=== PATIENT | male | born 1975 | race African-American/Black ===

== ENCOUNTER 2016-12-01 10:14 | Emergency (ER) | payer OTHER ==
[2016-12-01 10:21] VITALS: BP 149/92
[2016-12-01] MEDS ORDERED: PREDNISONE 20 MG TABLET PO ONE (10:51)
--- NOTE | 2016-12-01 10:57 | ER Document Report ---
ED Skin Rash/Insect Bite/Abscs - General Chief Complaint: Skin Problem Stated Complaint: POSSIBLE SKIN IRRITATION Time Seen by Provider: 12/01/16 10:41 Mode of Arrival: Ambulatory Information source: Patient Notes: 41-year-old male presents to ED for eczema flare to her arms legs chest back buttocks and abdomen and neck. Patient states the itching is a severe he has been trying to use Benadryl but it has not really helped. His last flare was over 15 years ago. He denies any use of new detergents soaps or skin care products states he has not done anything that he does not usually do. 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 TRAVEL OUTSIDE OF THE [place] IN LAST 30 DAYS: No - HPI Patient complains to provider of: Skin rash/lesion Onset: Other - Several days getting worse Onset/Duration: Gradual Severity: Mild Pain Level: 1 Skin Character: Erythema, Rash Quality of rash: Itchy Identify cause: Yes - eczema Exacerbated by: Other - heat Relieved by: Denies Similar symptoms previously: Yes Recently seen / treated by doctor: No - Related Data Allergies/Adverse Reactions: ibuprofen [Ibuprofen] Allergy (Severe, Verified 12/01/16 10:21) Hives strawberry [[place]] Allergy (Severe, Verified 12/01/16 10:21) Past Medical History - General Information source: Patient - Social History Smoking Status: Current Every Day Smoker Cigarette use (# per day): Yes - 4-6 cig and 2 B&M Chew tobacco use (# tins/day): No Smoking Education Provided: Yes - less than 1 min Frequency of alcohol use: None Drug Abuse: None Occupation: moving and storage Lives with: Family Family History: Arthritis, CAD, CVA, DM, Hyperlipidemia, Hypertension - Past Medical History Cardiac Medical History: Reports: None Pulmonary Medical History: Reports: Hx Asthma EENT Medical History: Reports: None Neurological Medical History: Reports: Hx Migraine Endocrine Medical History: Reports: None Renal/ Medical History: Reports: None Malignancy Medical History: Reports None GI Medical History: Reports: None Musculoskeltal Medical History: Reports None Skin Medical History: Reports Hx Eczema Psychiatric Medical History: Reports: None Traumatic Medical History: Reports: None Infectious Medical History: Reports: None Surgical Hx: Negative - Immunizations Hx Diphtheria, Pertussis, Tetanus Vaccination: Yes Review of Systems - Review of Systems Constitutional: No symptoms reported EENT: No symptoms reported Cardiovascular: No symptoms reported Respiratory: No symptoms reported Gastrointestinal: No symptoms reported Genitourinary: No symptoms reported Male Genitourinary: No symptoms reported Musculoskeletal: No symptoms reported Skin: Rash - eczema arms chest back abdomen Hematologic/Lymphatic: No symptoms reported Neurological/Psychological: No symptoms reported -: Yes All other systems reviewed and negative Physical Exam - Vital signs Vitals: Temp Pulse Resp BP Pulse Ox 98.7 F 105 H 20 149/92 H 97 12/01/16 10:12/01/16 10:12/01/16 10:12/01/16 10:12/01/16 10:16 Course - Vital Signs Vital signs: Temp Pulse Resp BP Pulse Ox 98.7 F 105 H 20 149/92 H 12/01/16 10:12/01/16 10:12/01/16 10:12/01/16 10:12/01/16 10:16 Discharge - Discharge Clinical Impression: Eczema Qualifiers: Eczema type: unspecified Qualified Code(s): L30.9 - Dermatitis, unspecified Condition: Stable Disposition: HOME, SELF-CARE Instructions: Family Physicians / Practices Additional Instructions: Atopic Dematitis (Eczema) You have atopic dermatitis, commonly called eczema. This is a chronic allergic skin condition. It often occurs in families with asthma and hay fever. The skin develops patches of redness, itching and scaling. Eczema often affects the back of the neck, back of the legs, and front of the arms. In children it affects the back of the knees, front of the elbows, and the cheeks. Itching is the main symptom. Eczema can be triggered by dryness, heat, sweating, and detergents or soap. Scratching makes the rash worse. Food or skin allergy can cause eczema. Emotional stress may also be a factor. Symptoms may get better or worse spontaneously. Generally, the treatment consists of: (1) avoid hot-water baths, (2) avoid using soap on your skin, (3) apply a cortisone cream as needed, and (4) use antihistamines for itching. For severe episodes, oral cortisone medication may be required. Call the doctor if you get worse despite treatment, or if signs of infection occur -- such as spreading redness, red streaks, swollen glands, swelling, or fever. STEROID MEDICATION: You have been given a medicine of the cortisone/steroid class. This medication is used to control inflammation or allergy. It is usually only given for a short period of time, until the acute process subsides. There are usually no side effects from short-term use of cortisone-like medications. Some persons feel an increased sense of well-being and are not sleepy at bedtime. Long-term use of cortisone medications is best avoided, unless required for a severe condition. If your condition does not remit, or relapses after the course of corticosteroid medication, you should consult your physician. ACID-SUPPRESSING MEDICATION: You have a prescription for medicine which reduces the stomach's secretion of acid. Examples include Zantac, Tagament, and Pepcid. These drugs are often used to allow healing of ulcers or esophagitis. They may be needed to prevent recurrence of ulcers in some patients, or to prevent damage from acid reflux in the esophagus. Take all medication as prescribed, even after the pain is gone. Regular antacids may be added as needed if you have symptoms while taking this medicine. These medications sometimes are prescribed for allergic reactions because they have anti-histaminic effects and relieve the rash and itching of the reaction. There are usually no side effects from this medication. But, in rare cases and particularly in the elderly, serious problems can occur. Contact your doctor if there is fever, rash, hallucinations, confusion, or unusual bruising. Contact your doctor at once if you develop lightheadedness, black or bloody stool, or bloody vomitus. ANTIHISTAMINES: An antihistamine has been given and/or prescribed to control your symptoms. Antihistamines are used for many reasons, including itching, watering eyes, runny nose, allergic swelling, hives, and insect stings. Antihistamines may cause drowsiness, especially with the first dose. Do not operate machinery or drive while under the effects of the medication. Other common side effects include dry mouth and eyes. In older persons, antihistamines can occasionally cause urinary retention, constipation, and trouble focusing the eyes. Do not combine the medication with alcohol, or with any other medication without talking to your doctor. FOLLOW-UP CARE: If you have been referred to a physician for follow-up care, call the physician s office for an appointment as you were instructed or within the next two days. If you experience worsening or a significant change in your symptoms, notify the physician immediately or return to the Emergency Department at any time for re-evaluation. Prescriptions: Hydroxyzine HCl 50 mg PO BIDP PRN #14 tablet PRN Reason: Prednisone [Sterapred Ds] 1 pkg PO ASDIR PRN 12 Days tab.ds.pk PRN Reason: Forms: Elevated Blood Pressure, Smoking Cessation Education, Return to Work
== END 2016-12-01 11:07 | disposition home or self-care (01) ==
LOC: ER 10:14
DX: L30.9 Dermatitis, unspecified (principal); J45.909 Unspecified asthma, uncomplicated; F17.210 Nicotine dependence, cigarettes, uncomplicated; Z71.6 Tobacco abuse counseling; Z88.6 Allergy status to analgesic agent; Z91.018 Allergy to other foods
CPT/HCPCS: 99282; J7512

== ENCOUNTER 2017-05-08 09:54 | Emergency (ER) | payer SELFPAY ==
[2017-05-08] MEDS ORDERED: METHYLPREDNISOLONE INJ 125 MG/2 ML SDV IM ONE (10:18)
[2017-05-08 10:23] VITALS: BP 124/77
--- NOTE | 2017-05-08 10:24 | ER Document Report ---
HPI - HPI Pain Level: Denies Notes: Patient is a 41-year-old male who presents ED complaining of an eczema flareup over the last couple weeks. Patient states that he has intermittent flareups and needs steroids to help with the rash. Patient states that his rash is pruritic. Patient states that the rash feels really shows up on his trunk and extremities. Patient denies any changes in soaps, detergents, travel, insect bites, new foods, or new medicines. Patient is still eating and drinking without any difficulties. He is urinating normally and having normal bowel movements. Patient states that he has felt intermittent chills over the last 24 hours, but otherwise has no other concerns or complaints at this time. Denies any headache, fever, neck pain, URI, sore throat, chest pain, palpitations, syncope, cough, shortness of breath, wheeze, dyspnea, abdominal pain, nausea/vomiting/diarrhea, urinary retention, dysuria, hematuria, loss of control of bowel or bladder, numbness/tingling, joint pains, muscle paralysis/ weakness. Denies any changes in weight. - ROS Notes: REVIEW OF SYSTEMS: CONSTITUTIONAL : see hpi. Denies fever, or sweats. Denies recent illness. EENT: Denies eye, ear, throat, or mouth pain or symptoms. Denies nasal or sinus congestion or discharge. Denies throat, tongue, or mouth swelling or difficulty swallowing. CARDIOVASCULAR: Denies chest pain. Denies palpitations or racing or irregular heart beat. Denies ankle edema. RESPIRATORY: Denies cough, cold, or chest congestion. Denies shortness of breath, difficulty breathing, or wheezing. GASTROINTESTINAL: Denies abdominal pain or distention. Denies nausea, vomiting , or diarrhea. Denies blood in vomitus, stools, or per rectum. Denies black, tarry stools. Denies constipation. GENITOURINARY: Denies difficulty urinating, painful urination, burning, frequency, blood in urine, or discharge. MUSCULOSKELETAL: Denies back or neck pain or stiffness. Denies joint pain or swelling. SKIN: see hpi NEUROLOGICAL: Denies confusion or altered mental status. Denies passing out or loss of consciousness. Denies dizziness or lightheadedness. Denies headache. Denies problems with gait or speech. Denies sensory loss, numbness , or tingling. Denies seizures. ALL OTHER SYSTEMS REVIEWED AND NEGATIVE. Dictation was performed using [email or web address] voice recognition software Past Medical History - Social History Smoking Status: Unknown if Ever Smoked Family History: Arthritis, CAD, CVA, DM, Hyperlipidemia, Hypertension Pulmonary Medical History: Reports: Hx Asthma Neurological Medical History: Reports: Hx Migraine Renal/ Medical History: Denies: Hx Peritoneal Dialysis Skin Medical History: Reports Hx Eczema - Immunizations Hx Diphtheria, Pertussis, Tetanus Vaccination: Yes Vertical Provider Document - CONSTITUTIONAL Agree With Documented VS: Yes Notes: PHYSICAL EXAMINATION: GENERAL: Well-appearing, well-nourished and in no acute distress. A&Ox4. HEAD: Atraumatic, normocephalic. EYES: Pupils equal round and reactive to light, extraocular movements intact, sclera anicteric, conjunctiva are normal. ENT: Nares patent and without discharge. oropharynx clear without exudates. No tonsilar hypertrophy or erythema. Moist mucous membranes. No sinus tenderness. NECK: Normal range of motion, supple without lymphadenopathy LUNGS: Breath sounds clear to auscultation bilaterally and equal. No wheezes rales or rhonchi. HEART: Regular rate and rhythm without murmurs, rubs, gallops. ABDOMEN: Soft, nontender, nondistended abdomen. No guarding, no rebound. No masses appreciated. Normal bowel sounds present. No CVA tenderness bilaterally. Musculoskeletal: FROM to passive/active. Strength 5+/5. Extremities: No cyanosis, clubbing, or edema b/l. Peripheral pulses 2+. Capillary refill less than 3 seconds. NEUROLOGICAL: Cranial nerves grossly intact. Normal speech, normal gait. Normal sensory, motor exams PSYCH: Normal mood, normal affect. SKIN: eczema to extremities b/l and trunk b/l, primarily to flexor surfaces. - INFECTION CONTROL TRAVEL OUTSIDE OF THE [place] IN LAST 30 DAYS: No Course - Re-evaluation Re-evalutation: 05/08/17 10:21 Patient is an afebrile, well-hydrated, 41-year-old male who presents the ED with an eczema flareup. Vitals are stable. PE is otherwise unremarkable. Solu -Medrol given IM today. I will send him home with a prescription for a steroid tapering dose as well as triamcinolone. Low suspicion for any acute systemic emergent condition at this time. Patient is aware that his condition can change from initial presentation and he needs to monitor symptoms closely and seek medical attention with any acute changes. Recheck with your PCM in 3-5 days. Consider consult with a produce service team member. Return to the ED with any worsening/concerning symptoms otherwise as reviewed in discharge. Patient is in agreement. Discharge - Discharge Clinical Impression: Eczema Qualifiers: Eczema type: flexural Qualified Code(s): L20.82 - Flexural eczema Condition: Stable Disposition: HOME, SELF-CARE Instructions: Atopic Dermatitis (Eczema) ([facility]), Steroid Medication, Steroid Medication Injection Additional Instructions: Keep the skin clean Wash with soap and water Tylenol/ibuprofen if needed Triple antibiotic ointment for any break in the skin Moisturizers Take medication as directed Monitor for any worsening symptoms Recheck with your PCM in 3-5 days Consider consult with a produce service team member for ongoing/worsening symptoms Return to the ED with any worsening symptoms and/or development of fever, headache, chest pain, palpitations, syncope, shortness of breath, trouble breathing, abdominal pain, n/v/d, abscess, purulent discharge, red streaks, worsening swelling, or other worsening symptoms that are concerning to you. Prescriptions: Prednisone [Deltasone 10 mg Tablet] 10 mg PO ASDIR PRN #21 tablet PRN Reason: Triamcinolone Acetonide [Aristocort 0.5% Cream 15 gm] 1 applic TP BID #1 tube Referrals: TIFFANIE MCCOY DO [ACTIVE STAFF] - Follow up as needed
== END 2017-05-08 10:35 | disposition home or self-care (01) ==
LOC: ER 09:54
DX: L20.82 Flexural eczema (principal); R68.83 Chills (without fever); J45.909 Unspecified asthma, uncomplicated
CPT/HCPCS: 99283; 96372; J2930

== ENCOUNTER 2018-02-24 18:12 | Emergency (ER) | payer SELFPAY ==
[2018-02-24] MEDS ORDERED: IPRATROPIUM/ALBUTEROL 0.5-2.5 MG/3 ML AMPUL NEB ONE ×2 (18:15→18:20)
[2018-02-24] MEDS ORDERED: PREDNISONE 20 MG TABLET PO ONE (18:20)
[2018-02-24] MEDS ORDERED: ALBUTEROL SULFATE 0.083% NEB 2.5 MG/3 ML AMPUL NEB ONE (18:27)
--- NOTE | 2018-02-24 18:29 | ER Document Report ---
ED Medical Screen (RME) - General Chief Complaint: Breathing Difficulty Stated Complaint: DIFFICULTY BREATHING Time Seen by Provider: 02/24/18 18:20 Notes: 42-year-old male patient with history of asthma which is usually only a problem when he gets URIs. He states his wheezing started yesterday and he was using his inhaler. When he arrived he was quite dyspneic, I saw him after he finished the DuoNeb. He still had some wheezes and air trapping but states his breathing is considerably better than before the DuoNeb. He does have eczema and takes amino modulating drugs and steroid lotions. I have greeted and performed a rapid initial assessment of this patient. A comprehensive ED assessment and evaluation of the patient, analysis of test results and completion of the medical decision making process will be conducted by additional ED providers. TRAVEL OUTSIDE OF THE [place] IN LAST 30 DAYS: No - Related Data Allergies/Adverse Reactions: ibuprofen [Ibuprofen] Allergy (Severe, Verified 05/08/17 09:57) Hives strawberry [[place]] Allergy (Severe, Verified 05/08/17 09:57) morphine Allergy (Verified 02/24/18 18:13) Past Medical History Pulmonary Medical History: Reports: Hx Asthma Neurological Medical History: Reports: Hx Migraine Renal/ Medical History: Denies: Hx Peritoneal Dialysis Skin Medical History: Reports Hx Eczema - Immunizations Hx Diphtheria, Pertussis, Tetanus Vaccination: Yes Physical Exam - Vital signs Vitals: Temp Pulse Resp BP Pulse Ox 98.8 F 102 H 38 H 167/87 H 96 02/24/18 18:16 02/24/18 18:16 02/24/18 18:16 02/24/18 18:16 02/24/18 18:16 Course - Vital Signs Vital signs: Temp Pulse Resp BP Pulse Ox 98.8 F 102 H 38 H 167/87 H 96 02/24/18 18:16 02/24/18 18:16 02/24/18 18:16 02/24/18 18:16 02/24/18 18:16
--- NOTE | 2018-02-24 18:41 | ER Document Report ---
ED General - General Chief Complaint: Breathing Difficulty Stated Complaint: DIFFICULTY BREATHING Time Seen by Provider: 02/24/18 18:20 Notes: Patient is a 42-year-old male with asthma that presents to the emergency department for chief complaint of shortness of breath and wheezing. Patient states that he started having coughing and wheezing on Monday, he is out of medication for his asthma so his symptoms progressed over that period of time. He denies having any associated fevers, chills, night sweats, chest pain, nausea , vomiting or abdominal pain. He otherwise has no other complaints. Past Medical History: Asthma Past Surgical History: Denies surgical history Social History: Admits to using a vapor, former smoker, denies alcohol or drug use. Family History: Reviewed and noncontributory for presenting illness Allergies: Reviewed, see documented allergy list. REVIEW OF SYSTEMS: Other than noted above, the 12 point review of systems was reviewed with the patient and were negative, all pertinent findings are included in the HPI. PHYSICAL EXAMINATION: Vital signs reviewed, nursing noted reviewed. GENERAL: Well-appearing, well-nourished and in no acute distress. HEAD: Atraumatic, normocephalic. EYES: Eyes appear normal, extraocular movements intact, sclera anicteric, conjunctiva are normal. ENT: nares patent, oropharynx clear without exudates. Moist mucous membranes. NECK: Normal range of motion, supple without lymphadenopathy LUNGS: Bilateral expiratory wheezing noted on lung exam, no acute respiratory distress HEART: Heart rate mildly tachycardic, regular rhythm, no audible murmur ABDOMEN: Soft, nontender, normoactive bowel sounds. No rebound, guarding, or rigidity. No masses appreciated. EXTREMITIES: Nontender, good range of motion, no pitting or edema. NEUROLOGICAL: No focal neurological deficits. Moves all extremities spontaneously Motor and sensory grossly intact on exam. PSYCH: Normal mood, normal affect. SKIN: Warm, Dry, normal turgor, no rashes or lesions noted on exposed skin TRAVEL OUTSIDE OF THE [place] IN LAST 30 DAYS: No - Related Data Allergies/Adverse Reactions: ibuprofen [Ibuprofen] Allergy (Severe, Verified 05/08/17 09:57) Hives strawberry [[place]] Allergy (Severe, Verified 05/08/17 09:57) morphine Allergy (Verified 02/24/18 18:13) Past Medical History - Social History Smoking Status: Unknown if Ever Smoked Frequency of alcohol use: None Drug Abuse: None Family History: Arthritis, CAD, CVA, DM, Hyperlipidemia, Hypertension Patient has suicidal ideation: No Patient has homicidal ideation: No Pulmonary Medical History: Reports: Hx Asthma Neurological Medical History: Reports: Hx Migraine Renal/ Medical History: Denies: Hx Peritoneal Dialysis Skin Medical History: Reports Hx Eczema - Immunizations Hx Diphtheria, Pertussis, Tetanus Vaccination: Yes Physical Exam - Vital signs Vitals: Temp Pulse Resp BP Pulse Ox 98.8 F 102 H 38 H 167/87 H 96 02/24/18 18:16 02/24/18 18:16 02/24/18 18:16 02/24/18 18:16 02/24/18 18:16 Course - Re-evaluation Re-evalutation: Patient seen and examined vital signs reviewed. Patient was evaluated and treated as appropriate for the patient's presenting symptoms and complaint, with consideration of any critical or life threatening conditions that may be associated with their obtained history and exam as noted above. Patient was treated with DuoNeb breathing treatments, and prednisone 60 mg p.o. The patient was re-evaluated and was feeling much better, and much improved, stating that his breathing was back to his baseline Evaluation was most consistent with acute exacerbation of asthma Plan of care was discussed with the patient at this point, after careful consideration I feel that that patient can be discharged from the emergency department, the patient was educated treatments and reasons to return to the emergency department based on their presumed diagnosis as noted above, they were advised to followup with a primary care physician in 2-3 days. Patient was agreeable to plan of care. *Note is created using voice recognition software and may contain spelling, syntax or grammatical errors. - Vital Signs Vital signs: Temp Pulse Resp BP Pulse Ox 98.8 F 102 H 38 H 167/87 H 96 02/24/18 18:16 02/24/18 18:16 02/24/18 18:16 02/24/18 18:16 02/24/18 18:16 Discharge - Discharge Clinical Impression: Acute asthma exacerbation Qualifiers: Asthma severity: unspecified severity Asthma persistence: unspecified Qualified Code(s): J45.901 - Unspecified asthma with (acute) exacerbation Condition: Stable Disposition: HOME, SELF-CARE Instructions: Asthma ([facility]) Additional Instructions: Please return to the emergency department if you have any worsening, or concern of your symptoms. Please return to the emergency department if you develop chest pain, difficulty breathing, severe abdominal pain, or ongoing vomiting. Please follow-up with your primary care physician in 2-3 days and any other recommended physicians. If prescribed, take all medications as directed. If you have any questions or concerns do not hesitate to return the emergency department for evaluation. Prescriptions: Prednisone [Deltasone 20 mg Tablet] 3 tab PO DAILY 4 Days #12 tablet Referrals: CLARENCE HAYNES MD [COMMUNITY BASED STAFF] - Follow up in 3-5 days (or your primary care. )
[2018-02-24] MEDS ORDERED: ALBUTEROL SULFATE HFA (90 MCG/PUFF) 8 GM MDI (1 MDI/ER DISP) IH ONE (19:10)
[2018-02-24 19:19] VITALS: BP 154/84
== END 2018-02-24 19:24 | disposition home or self-care (01) ==
LOC: ER 18:12
DX: J45.901 Unspecified asthma with (acute) exacerbation (principal); Z88.6 Allergy status to analgesic agent
CPT/HCPCS: 94640 ×2; 99284; J7512; J3490; J7620

== ENCOUNTER 2018-07-10 17:39 | Emergency (ER) | payer SELFPAY ==
[2018-07-10] MEDS ORDERED: IPRATROPIUM/ALBUTEROL 0.5-2.5 MG/3 ML AMPUL NEB ONE (18:03)
[2018-07-10] MEDS ORDERED: PREDNISONE 20 MG TABLET PO ONE (18:03)
--- NOTE | 2018-07-10 18:03 | ER Document Report ---
ED General - General Chief Complaint: Breathing Difficulty Stated Complaint: DIFFICULTY BREATHING Time Seen by Provider: 07/10/18 17:56 Primary Care Provider: MORAIMA CROCKETT MD [COMMUNITY BASED STAFF] - Follow up in 3-5 days (primary care. ) Notes: Patient is a 42-year-old male with asthma that presents to the emergency department for chief complaint of wheezing and shortness of breath. Patient reports she is been having a cough, and has felt more short of breath over the past few days, seemingly worse yesterday, he did have an albuterol inhaler which she has run out of. He does not have any medication for his asthma at home currently. Denies having any associated chest pain, nausea, vomiting, fevers, chills, night sweats. Past Medical History: Asthma, eczema Past Surgical History: Denies surgical history Social History: Denies tobacco, alcohol or drug use. Family History: Reviewed and noncontributory for presenting illness Allergies: Reviewed, see documented allergy list. REVIEW OF SYSTEMS: Other than noted above, the 12 point review of systems was reviewed with the patient and were negative, all pertinent findings are included in the HPI. PHYSICAL EXAMINATION: Vital signs reviewed, nursing noted reviewed. GENERAL: Well-appearing, well-nourished and in no acute distress. HEAD: Atraumatic, normocephalic. EYES: Eyes appear normal, extraocular movements intact, sclera anicteric, conjunctiva are normal. ENT: nares patent, oropharynx clear without exudates. Moist mucous membranes. NECK: Normal range of motion, supple without lymphadenopathy LUNGS: Bilateral inspiratory and expiratory wheezing noted throughout all lung greer, no respiratory distress however. HEART: Regular rate and rhythm without murmurs ABDOMEN: Soft, nontender, normoactive bowel sounds. No rebound, guarding, or rigidity. No masses appreciated. EXTREMITIES: Nontender, good range of motion, no pitting or edema. NEUROLOGICAL: No focal neurological deficits. Moves all extremities spontaneously Motor and sensory grossly intact on exam. PSYCH: Normal mood, normal affect. SKIN: Warm, Dry, normal turgor, no rashes or lesions noted on exposed skin TRAVEL OUTSIDE OF THE [place] IN LAST 30 DAYS: No - Related Data Allergies/Adverse Reactions: ibuprofen [Ibuprofen] Allergy (Severe, Verified 07/10/18 17:45) Hives strawberry [[place]] Allergy (Severe, Verified 07/10/18 17:45) morphine Allergy (Verified 07/10/18 17:45) Past Medical History - Social History Smoking Status: Never Smoker Family History: Arthritis, CAD, CVA, DM, Hyperlipidemia, Hypertension Patient has suicidal ideation: No Patient has homicidal ideation: No Pulmonary Medical History: Reports: Hx Asthma Neurological Medical History: Reports: Hx Migraine Renal/ Medical History: Denies: Hx Peritoneal Dialysis Skin Medical History: Reports Hx Eczema - Immunizations Hx Diphtheria, Pertussis, Tetanus Vaccination: Yes Physical Exam - Vital signs Vitals: Temp Pulse Resp BP Pulse Ox 98.8 F 84 24 H 153/95 H 94 07/10/18 17:55 07/10/18 17:55 07/10/18 17:55 07/10/18 17:55 07/10/18 17:55 Course - Re-evaluation Re-evalutation: Patient seen and examined vital signs reviewed. Patient was evaluated and treated as appropriate for the patient's presenting symptoms and complaint, with consideration of any critical or life threatening conditions that may be associated with their obtained history and exam as noted above. Patient was treated with DuoNeb breathing treatments, and given a p.o. dose of prednisone, chest x-ray obtained and negative for evidence of pneumonia. The patient was re-evaluated and was much improved, wheezing resolved after DuoNeb Evaluation was most consistent with acute asthma exacerbation, patient given a prescription for prednisone, he is also given a prescription for budesonide inhaled, he does have a nebulizer, and additionally patient was given an albuterol inhaler with spacer from the ED. Plan of care was discussed with the patient at this point, after careful consideration I feel that that patient can be discharged from the emergency department, the patient was educated treatments and reasons to return to the emergency department based on their presumed diagnosis as noted above, they were advised to followup with a primary care physician in 2-3 days. Patient was agreeable to plan of care. *Note is created using voice recognition software and may contain spelling, syntax or grammatical errors. Chest X-Ray 07/10/18 18:04 IMPRESSION: NO ACUTE RADIOGRAPHIC FINDING IN THE CHEST. - Vital Signs Vital signs: Temp Pulse Resp BP Pulse Ox 98.8 F 81 20 160/90 H 93 07/10/18 17:55 07/10/18 19:15 07/10/18 19:15 07/10/18 19:15 07/10/18 19:15 Discharge - Discharge Clinical Impression: Acute asthma exacerbation Qualifiers: Asthma severity: unspecified severity Asthma persistence: unspecified Qualified Code(s): J45.901 - Unspecified asthma with (acute) exacerbation Condition: Stable Disposition: HOME, SELF-CARE Instructions: Asthma ([facility]) Additional Instructions: Please use the inhaler that is been dispensed to you from the emergency department every 4 hours for the next 3-5 days, and please complete the entire course of steroids had been prescribed to you, to help with the inflammation that is in your lungs. Prescriptions: Budesonide [Pulmicort Neb 0.5 mg/2 ml Ampul] 0.5 mg NEB Q12 #60 ampul.neb RX: Prednisone [Deltasone 10 mg Tablet] 40 mg PO DAILY #16 tablet Referrals: MORAIMA CROCKETT MD [COMMUNITY BASED STAFF] - Follow up in 3-5 days (primary care. )
[2018-07-10] MEDS ORDERED: ALBUTEROL SULFATE HFA (90 MCG/PUFF) 8 GM MDI (1 MDI/ER DISP) IH ONE (18:04)
--- NOTE | 2018-07-10 18:22 | RADIOLOGY REPORT (SQ) ---
EXAM DESCRIPTION: CHEST 2 VIEWS COMPLETED DATE/TIME: 07/10/2018 6:17 pm REASON FOR STUDY: cough COMPARISON: 09/30/2009 EXAM PARAMETERS: NUMBER OF VIEWS: two views TECHNIQUE: Digital Frontal and Lateral radiographic views of the chest acquired. RADIATION DOSE: NA LIMITATIONS: none FINDINGS: LUNGS AND PLEURA: No opacities, masses or pneumothorax. No pleural effusion. MEDIASTINUM AND HILAR STRUCTURES: No masses or contour abnormalities. HEART AND VASCULAR STRUCTURES: Heart normal size. No evidence for failure. BONES: No acute findings. HARDWARE: None in the chest. OTHER: No other significant finding. IMPRESSION: NO ACUTE RADIOGRAPHIC FINDING IN THE CHEST. TECHNICAL DOCUMENTATION: JOB ID: [id number] [employer]- All Rights Reserved Reading location - IP/workstation name: [email or web address]
[2018-07-10 19:23] VITALS: BP 160/90
== END 2018-07-10 19:17 | disposition home or self-care (01) ==
LOC: ER 17:39
DX: J45.901 Unspecified asthma with (acute) exacerbation (principal); R06.02 Shortness of breath; R06.00 Dyspnea, unspecified; Z88.6 Allergy status to analgesic agent
CPT/HCPCS: 94640; 99284; 71046; J7512; J3490; J7620

== ENCOUNTER 2019-01-01 11:54 | Emergency (ER) | payer SELFPAY ==
[2019-01-01] MEDS ORDERED: ASPIRIN 81 MG TABLET, CHEWABLE PO ONE (12:09)
--- NOTE | 2019-01-01 12:11 | ER Document Report ---
ED Medical Screen (RME) - General Chief Complaint: Chest Pain Stated Complaint: CHEST PAIN Time Seen by Provider: 01/01/19 12:06 Mode of Arrival: Ambulatory Information source: Patient Notes: Patient presents to the emergency department with complaints of chest pain to the center of his chest. Reports it started with a poke now it feels like a pressure pain. Denies other symptoms such as shortness of breath fever vomiting diarrhea nausea. Patient denies history of cardiac disease. Reports he drinks about 2-1/2 cup of coffee a day. 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 Reports he only takes medication for his eczema. Patient very emotional. I have greeted and performed a rapid initial assessment of this patient. A comprehensive ED assessment and evaluation of the patient, analysis of test results and completion of the medical decision making process will be conducted by additional ED providers. Dictation of this chart was performed using voice recognition software; therefore, there may be some unintended grammatical errors. TRAVEL OUTSIDE OF THE [place] IN LAST 30 DAYS: No - Related Data Allergies/Adverse Reactions: ibuprofen [Ibuprofen] Allergy (Severe, Verified 01/01/19 11:55) Hives strawberry [[place]] Allergy (Severe, Verified 01/01/19 11:55) morphine Allergy (Verified 01/01/19 11:55) Past Medical History Pulmonary Medical History: Reports: Hx Asthma Neurological Medical History: Reports: Hx Migraine Renal/ Medical History: Denies: Hx Peritoneal Dialysis Skin Medical History: Reports Hx Eczema - Immunizations Hx Diphtheria, Pertussis, Tetanus Vaccination: Yes Physical Exam - Vital signs Vitals: Temp Pulse Resp BP Pulse Ox 98.1 F 75 18 144/93 H 96 01/01/19 11:57 01/01/19 11:57 01/01/19 11:57 01/01/19 11:57 01/01/19 11:57 Course - Vital Signs Vital signs: Temp Pulse Resp BP Pulse Ox 98.1 F 75 18 144/93 H 96 01/01/19 11:57 01/01/19 11:57 01/01/19 11:57 01/01/19 11:57 01/01/19 11:57
[2019-01-01 12:42] LABS: ABSOLUTE BASOPHILS # (AUTO) 0.1 10^3/uL (0.0-0.2); ABSOLUTE EOSINOPHILS # (AUTO) 1.2 10^3/uL (0.0-0.6); ABSOLUTE LYMPHOCYTES (AUTO) 2.7 10^3/uL (0.5-4.7); ABSOLUTE MONOCYTES (AUTO) 0.5 10^3/uL (0.1-1.4); ABSOLUTE NEUT (AUTO) 1.8 10^3/uL (1.7-8.2); BASOPHILS % (AUTO) 1.3 % (0-2); EOSINOPHILS % (AUTO) 18.8 % (0-6); HEMATOCRIT 38.9 % (37.9-51.0); LYMPHOCYTES % (AUTO) 44.2 % (13-45); MEAN CORPUSCULAR HEMOGLOBIN 32.1 pg (27.0-33.4); MEAN CORPUSCULAR HGB CONC 33.5 g/dL (32.0-36.0); MEAN CORPUSCULAR VOLUME 96 fl (80-97); MONOCYTES % (AUTO) 7.4 % (3-13); PLATELET COUNT 237 10^3/uL (150-450); RED BLOOD COUNT 4.06 10^6/uL (4.35-5.55); RED CELL DISTRIBUTION WIDTH 12.8 % (11.5-14.0); SEGMENTED NEUTROPHILS % (AUTO) 28.3 % (42-78); TOTAL CELLS COUNTED % (AUTO) 100 %; WHITE BLOOD COUNT 6.2 10^3/uL (4.0-10.5)
--- NOTE | 2019-01-01 12:43 | RADIOLOGY REPORT (SQ) ---
EXAM DESCRIPTION: CHEST 2 VIEWS COMPLETED DATE/TIME: 01/01/2019 12:29 pm REASON FOR STUDY: cp COMPARISON: 07/10/2018 EXAM PARAMETERS: NUMBER OF VIEWS: two views TECHNIQUE: Digital Frontal and Lateral radiographic views of the chest acquired. RADIATION DOSE: NA LIMITATIONS: none FINDINGS: LUNGS AND PLEURA: No opacities, masses or pneumothorax. No pleural effusion. MEDIASTINUM AND HILAR STRUCTURES: No masses or contour abnormalities. HEART AND VASCULAR STRUCTURES: Heart normal size. No evidence for failure. BONES: No acute findings. HARDWARE: None in the chest. OTHER: No other significant finding. IMPRESSION: NO ACUTE RADIOGRAPHIC FINDING IN THE CHEST. TECHNICAL DOCUMENTATION: JOB ID: [id number] [employer]- All Rights Reserved Reading location - IP/workstation name: [email or web address]
[2019-01-01 13:00] LABS: ALBUMIN 4.1 g/dL (3.5-5.0); ALKALINE PHOSPHATASE 54 U/L (38-126); ANION GAP 7 (5-19); ASPARTATE AMINO TRANSFERASE 28 U/L (17-59); BILIRUBIN,DIRECT 0.2 mg/dL (0.0-0.4); BILIRUBIN,TOTAL 0.5 mg/dL (0.2-1.3); BLOOD UREA NITROGEN 7 mg/dL (7-20); CARBON DIOXIDE 29 mmol/L (22-30); CHLORIDE 101 mmol/L (98-107); CREATINE KINASE 137 U/L (55-170); GLUCOSE 82 mg/dL (75-110); POTASSIUM 4.2 mmol/L (3.6-5.0); TOTAL PROTEIN 7.4 g/dL (6.3-8.2)
[2019-01-01 13:10] LABS: CREATINE KINASE MB 0.58 ng/mL (<4.55); TROPONIN I < 0.012 ng/mL
--- NOTE | 2019-01-01 14:31 | EKG REPORT ---
SEVERITY:- ABNORMAL ECG - SINUS RHYTHM FIRST DEGREE AV BLOCK LVH BY VOLTAGE BORDERLINE T ABNORMALITIES, INFERIOR LEADS : Confirmed by: Duke Stone MD 01-Jan-2019 14:30:41
--- NOTE | 2019-01-01 14:54 | ER Document Report ---
ED Cardiac - General Chief Complaint: Chest Pain Stated Complaint: CHEST PAIN Time Seen by Provider: 01/01/19 12:06 Mode of Arrival: Ambulatory Information source: Patient Notes: Patient is a 43-year-old male presents emergency department chief complaint of chest pain that began at approximately 11 AM while he was at work. Patient describes this as a sharp pain to the center of his chest. He denies any history of similar episodes. He states that he was not doing any physical activity when the pain began. He does state that the pain has been intermittent since that time. He denies any associated nausea, shortness of breath or diaphoresis with this pain. TRAVEL OUTSIDE OF THE [place] IN LAST 30 DAYS: No - Related Data Allergies/Adverse Reactions: ibuprofen [Ibuprofen] Allergy (Severe, Verified 01/01/19 11:55) Hives strawberry [[place]] Allergy (Severe, Verified 01/01/19 11:55) morphine Allergy (Verified 01/01/19 11:55) Past Medical History - General Information source: Patient - Social History Smoking Status: Current Every Day Smoker Frequency of alcohol use: None Drug Abuse: None Family History: Arthritis, CAD, CVA, DM, Hyperlipidemia, Hypertension Patient has suicidal ideation: No Patient has homicidal ideation: No Pulmonary Medical History: Reports: Hx Asthma Neurological Medical History: Reports: Hx Migraine Renal/ Medical History: Denies: Hx Peritoneal Dialysis Skin Medical History: Reports Hx Eczema - Immunizations Hx Diphtheria, Pertussis, Tetanus Vaccination: Yes Review of Systems - Review of Systems Constitutional: No symptoms reported EENT: No symptoms reported Cardiovascular: Chest pain Respiratory: No symptoms reported Gastrointestinal: No symptoms reported Genitourinary: No symptoms reported Male Genitourinary: No symptoms reported Musculoskeletal: No symptoms reported Skin: No symptoms reported Hematologic/Lymphatic: No symptoms reported Neurological/Psychological: No symptoms reported Physical Exam - Vital signs Vitals: Temp Pulse Resp BP Pulse Ox 98.1 F 75 18 144/93 H 96 01/01/19 11:57 01/01/19 11:57 01/01/19 11:57 01/01/19 11:57 01/01/19 11:57 - Notes Notes: PHYSICAL EXAMINATION: GENERAL: Well-appearing, well-nourished and in no acute distress. HEAD: Atraumatic, normocephalic. EYES: Pupils equal round and reactive to light, extraocular movements intact, sclera anicteric, conjunctiva are normal. ENT: Nares patent, oropharynx clear without exudates. Moist mucous membranes. NECK: Normal range of motion, supple without lymphadenopathy LUNGS: Breath sounds clear to auscultation bilaterally and equal. No wheezes rales or rhonchi. HEART: Regular rate and rhythm without murmurs ABDOMEN: Soft, nontender, nondistended abdomen. No guarding, no rebound. No masses appreciated. Musculoskeletal: No pain upon palpation of the chest wall. NEUROLOGICAL: Cranial nerves grossly intact. Normal speech, normal gait. Normal sensory, motor exams PSYCH: Normal mood, normal affect. SKIN: Warm, Dry, normal turgor, no rashes or lesions noted. Course - Re-evaluation Re-evalutation: Patient's initial cardiac work-up here in the emergency department was unremarkable. His EKG shows a sinus rhythm, rate of 72, normal axis, no ST segment elevations or depressions to suggest ischemia. He has been in a normal sinus rhythm on the gambling monitor. His vital signs have been stable. He has been chest pain-free during his time here. Initial troponin was negative. Considering his chest pain had not started until approximately 11 AM I did request that the patient stay for repeat troponin. Patient was agreeable to this plan. At time of reevaluation patient continues to be chest pain-free. Repeat troponin is negative. Discussed the importance of following up with a primary care provider for consideration of a stress test. Patient verbalizes understanding and agreement with this plan. Laboratory 01/01/19 01/01/19 01/01/19 12:15 12:15 12:15 WBC 6.2 RBC 4.06 L Hgb 13.0 L Hct 38.9 MCV 96 MCH 32.1 MCHC 33.5 RDW 12.8 Plt Count 237 Lymph % (Auto) 44.2 [place] % (Auto) 7.4 Eos % (Auto) 18.8 H Baso % (Auto) 1.3 Absolute Neuts (auto) 1.8 Absolute Lymphs (auto) 2.7 Absolute Monos (auto) 0.5 Absolute Eos (auto) 1.2 H Absolute Basos (auto) 0.1 Seg Neutrophils % 28.3 L Sodium 136.9 L Potassium 4.2 Chloride 101 Carbon Dioxide 29 Anion Gap 7 BUN 7 Creatinine 0.70 Est GFR ( Amer) > 60 Est GFR (MDRD) Non-Af > 60 Glucose 82 Calcium 9.0 Total Bilirubin 0.5 Direct Bilirubin 0.2 Neonat Total Bilirubin Not Reportable Neonat Direct Bilirubin Not Reportable Neonat Indirect Bili Not Reportable AST 28 ALT 14 Alkaline Phosphatase 54 Creatine Kinase 137 CK-MB (CK-2) 0.58 Troponin I < 0.012 Total Protein 7.4 Albumin 4.1 01/01/19 16:25 WBC RBC Hgb Hct MCV MCH MCHC RDW Plt Count Lymph % (Auto) [place] % (Auto) Eos % (Auto) Baso % (Auto) Absolute Neuts (auto) Absolute Lymphs (auto) Absolute Monos (auto) Absolute Eos (auto) Absolute Basos (auto) Seg Neutrophils % Sodium Potassium Chloride Carbon Dioxide Anion Gap BUN Creatinine Est GFR ( Amer) Est GFR (MDRD) Non-Af Glucose Calcium Total Bilirubin Direct Bilirubin Neonat Total Bilirubin Neonat Direct Bilirubin Neonat Indirect Bili AST ALT Alkaline Phosphatase Creatine Kinase CK-MB (CK-2) Troponin I < 0.012 Total Protein Albumin Chest X-Ray 01/01/19 12:09 IMPRESSION: NO ACUTE RADIOGRAPHIC FINDING IN THE CHEST. - Vital Signs Vital signs: Temp Pulse Resp BP Pulse Ox 98.8 F 75 13 139/102 H 98 01/01/19 17:40 01/01/19 11:57 01/01/19 17:22 01/01/19 17:22 01/01/19 17:22 - Laboratory Result Diagrams: 01/01/19 12:15 01/01/19 12:15 Laboratory results interpreted by me: 01/01/19 01/01/19 12:15 12:15 RBC 4.06 L Hgb 13.0 L Eos % (Auto) 18.8 H Absolute Eos (auto) 1.2 H Seg Neutrophils % 28.3 L Sodium 136.9 L Discharge - Discharge Clinical Impression: Chest pain Qualifiers: Chest pain type: unspecified Qualified Code(s): R07.9 - Chest pain, unspecified Condition: Stable Disposition: HOME, SELF-CARE Instructions: Family Physicians / Practices Additional Instructions: You were seen today for chest pain. The exact cause of your pain is unclear. However, based on your cardiac enzyme testing, chest x-ray, and EKG it does not appear that it is from an immediately life-threatening cause at this time. Although your testing here is normal is critical that you follow-up with your primary care physician for continued evaluation of this chest pain and possible stress testing. I recommended you see your physician within the next 24-48 hours to be evaluated for consideration of a stress test. Please return to emergency department immediately if you have worsening of your chest pain, shortness of breath, vomiting, become unable to exert yourself due to pain or difficulty breathing, you pass out, or have any pain that radiates into your arms, jaw, or back. Please also return if you have any additional symptoms that are concerning to you. Forms: Return to Work
[2019-01-01 17:32] VITALS: BP 139/102
== END 2019-01-01 17:41 | disposition home or self-care (01) ==
LOC: ER 11:54
DX: R07.9 Chest pain, unspecified (principal); F17.200 Nicotine dependence, unspecified, uncomplicated; J45.909 Unspecified asthma, uncomplicated; Z88.8 Allergy status to other drugs, medicaments and biological substances; Z91.018 Allergy to other foods; Z88.5 Allergy status to narcotic agent; Z82.49 Family history of ischemic heart disease and other diseases of the circulatory system
CPT/HCPCS: 36415; 71046; 80053; 82550; 82553; 84484; 85025; 93005; 93010; 99285

== ENCOUNTER 2019-02-27 12:05 | Day surgery (SDC) | payer BC ==
[~2019-02-27 12:05] MED LIST: KETOROLAC TROMETHAMINE 0.45% 4 DROP/0.4 ML DROPERETTE OS PRN
[2019-02-27] MEDS ORDERED: ONDANSETRON HCL INJ/PF 4 MG/2 ML SDV ONE (12:56)
[2019-02-27] MEDS ORDERED: MIDAZOLAM 2 MG/2 ML INJ ONE (12:56)
[2019-02-27] MEDS ORDERED: FENTANYL CITRATE INJ/PF 100 MCG/2 ML AMPUL ONE (12:57)
[2019-02-27] MEDS: CYCLOPENTOLATE 0.2%/PHENYLEPHRINE 1% OPH SOLN 2 ML OS PRN ×3 (13:25→13:45)
[2019-02-27] MEDS: BESIFLOXACIN HCL 0.6% OPH SUSP 5 ML BOTTLE OS PRN ×4 (13:25→14:17)
[2019-02-27] MEDS: TETRACAINE HCL 0.5% OPH SOLN 4 ML OS PRN ×3 (13:25→13:58)
[2019-02-27] MEDS: TROPICAMIDE 1% OPH SOLN 15 ML OS PRN ×3 (13:25→13:45)
[2019-02-27] MEDS: EPINEPHRINE INJ/PF 1 MG/1 ML AMPULE ONE ×2 (14:08)
[2019-02-27] MEDS: LIDOCAINE 1% INJ-PF (10 MG/ML) 30 ML SDV ONE ×2 (14:08)
[2019-02-27] MEDS: CHONDR SU A NA/HYALUR INTRAOC KIT (SURGICARE) ONE ×2 (14:08)
[2019-02-27] MEDS: DORZOLAMIDE HCL 2%/TIMOLOL MALEAT 0.5% OPH SOLN 10 ML OS PRN ×2 (14:17)
[2019-02-27] MEDS: TOBRAMYCIN SULFATE/DEXAMETH OPH OINTMENT 3.5 GM ONE ×2 (14:17)
== END 2019-02-27 15:04 | disposition home or self-care (01) ==
LOC: SC 12:05
PROVIDERS: ATTEND Ophthalmology
DX: H25.12 Age-related nuclear cataract, left eye (principal); J45.909 Unspecified asthma, uncomplicated; Z86.73 Personal history of transient ischemic attack (TIA), and cerebral infarction without residual deficits; F17.210 Nicotine dependence, cigarettes, uncomplicated
CPT/HCPCS: 66984; 00142; J2250; J3490 ×4; J0171; J3010; J2405; 142

== ENCOUNTER 2019-03-11 07:15 | Day surgery (SDC) | payer BC ==
[~2019-03-11 07:15] MED LIST changes: +FENTANYL CITRATE INJ/PF 100 MCG/2 ML AMPUL ONE; +KETOROLAC TROMETHAMINE 0.45% 4 DROP/0.4 ML DROPERETTE OD PRN; -KETOROLAC TROMETHAMINE 0.45% 4 DROP/0.4 ML DROPERETTE OS PRN; +MIDAZOLAM 2 MG/2 ML INJ ONE
[2019-03-11] MEDS: TROPICAMIDE 1% OPH SOLN 15 ML OD PRN ×3 (07:36→07:55)
[2019-03-11] MEDS: TETRACAINE HCL 0.5% OPH SOLN 4 ML OD PRN ×4 (07:36→08:04)
[2019-03-11] MEDS: BESIFLOXACIN HCL 0.6% OPH SUSP 5 ML BOTTLE OD PRN ×4 (07:37→08:20)
[2019-03-11] MEDS: CYCLOPENTOLATE 0.2%/PHENYLEPHRINE 1% OPH SOLN 2 ML OD PRN ×3 (07:37→07:55)
[2019-03-11] MEDS: CHONDR SU A NA/HYALUR INTRAOC KIT (SURGICARE) ONE ×2 (08:10)
[2019-03-11] MEDS: LIDOCAINE 1% INJ-PF (10 MG/ML) 30 ML SDV ONE ×2 (08:10)
[2019-03-11] MEDS: EPINEPHRINE INJ/PF 1 MG/1 ML AMPULE ONE ×2 (08:10)
[2019-03-11] MEDS: TOBRAMYCIN SULFATE/DEXAMETH OPH OINTMENT 3.5 GM ONE ×2 (08:20)
[2019-03-11] MEDS: DORZOLAMIDE HCL 2%/TIMOLOL MALEAT 0.5% OPH SOLN 10 ML OD PRN ×2 (08:20)
== END 2019-03-11 08:56 | disposition home or self-care (01) ==
LOC: SC 07:15
PROVIDERS: ATTEND Ophthalmology
DX: H25.11 Age-related nuclear cataract, right eye (principal); J45.909 Unspecified asthma, uncomplicated; F17.210 Nicotine dependence, cigarettes, uncomplicated; Z88.6 Allergy status to analgesic agent; Z98.42 Cataract extraction status, left eye
CPT/HCPCS: 66984; 00142; V2632; J2250; J3490 ×4; J0171; J3010; 142

== ENCOUNTER 2019-10-02 11:43 | Emergency (ER) | payer BC ==
--- NOTE | 2019-10-02 12:36 | ER Document Report ---
ED Medical Screen (RME) - General Chief Complaint: Other Stated Complaint: SHAKY,JITTERY Time Seen by Provider: 10/02/19 12:20 Primary Care Provider: ABBE HUANG [Primary Care Provider] - Follow up as needed Notes: Patient is a 44-year-old male who presents to the emergency department with a chief complaint of, "jittery feeling." Patient states he had a symptoms around 1127 this morning. States that he still feels the symptoms, but they have subsided. He also had associated slight abdominal pain. States abdominal pain has also subsided. Denies any vomiting or diarrhea. Patient states that he felt a little nauseous earlier, but does not feel nauseous at this time. Patient has history of asthma and eczema. Exam: S1, S2. Lung sounds clear. I have greeted and performed a rapid initial assessment of this patient. A comprehensive ED assessment and evaluation of the patient, analysis of test results and completion of medical decision making process will be conducted by an additional ED providers. TRAVEL OUTSIDE OF THE [place] IN LAST 30 DAYS: No - Related Data Allergies/Adverse Reactions: ibuprofen [Ibuprofen] Allergy (Severe, Verified 10/02/19 12:29) Hives strawberry [[place]] Allergy (Severe, Verified 10/02/19 12:29) morphine Allergy (Verified 10/02/19 12:29) Past Medical History - Past Medical History Cardiac Medical History: Denies: Hx Heart Attack, Hx Hypertension Pulmonary Medical History: Reports: Hx Asthma Neurological Medical History: Reports: Hx Migraine, Hx Seizures - ONE TIME A CHILD. Denies: Hx Cerebrovascular Accident Renal/ Medical History: Denies: Hx Peritoneal Dialysis GI Medical History: Denies: Hx Hepatitis, Hx Hiatal Hernia, Hx Ulcer Skin Medical History: Reports Hx Eczema Infectious Medical History: Denies: Hx Hepatitis Past Surgical History: Denies: Hx Open Heart Surgery, Hx Pacemaker - Immunizations Hx Diphtheria, Pertussis, Tetanus Vaccination: Yes Physical Exam - Vital signs Vitals: Temp Pulse Resp BP Pulse Ox 99.4 F 81 18 136/89 H 98 10/02/19 11:49 10/02/19 11:49 10/02/19 11:49 10/02/19 11:49 10/02/19 11:49 Course - Vital Signs Vital signs: Temp Pulse Resp BP Pulse Ox 99.4 F 81 18 136/89 H 98 10/02/19 11:49 10/02/19 11:49 10/02/19 11:49 10/02/19 11:49 10/02/19 11:49 Doctor's Discharge - Discharge Referrals: LOCALMD,NO [Primary Care Provider] - Follow up as needed
[2019-10-02 13:04] LABS: ABSOLUTE BASOPHILS # (AUTO) 0.1 10^3/uL (0.0-0.2); ABSOLUTE EOSINOPHILS # (AUTO) 0.9 10^3/uL (0.0-0.6); ABSOLUTE LYMPHOCYTES (AUTO) 2.4 10^3/uL (0.5-4.7); ABSOLUTE MONOCYTES (AUTO) 0.5 10^3/uL (0.1-1.4); ABSOLUTE NEUT (AUTO) 1.9 10^3/uL (1.7-8.2); BASOPHILS % (AUTO) 1.1 % (0-2); EOSINOPHILS % (AUTO) 16.2 % (0-6); HEMATOCRIT 40.1 % (37.9-51.0); HEMOGLOBIN 13.9 g/dL (13.5-17.0); LYMPHOCYTES % (AUTO) 41.1 % (13-45); MEAN CORPUSCULAR HEMOGLOBIN 33.7 pg (27.0-33.4); MEAN CORPUSCULAR HGB CONC 34.6 g/dL (32.0-36.0); MEAN CORPUSCULAR VOLUME 97 fl (80-97); MONOCYTES % (AUTO) 8.8 % (3-13); PLATELET COUNT 239 10^3/uL (150-450); RED BLOOD COUNT 4.12 10^6/uL (4.35-5.55); RED CELL DISTRIBUTION WIDTH 12.9 % (11.5-14.0); SEGMENTED NEUTROPHILS % (AUTO) 32.8 % (42-78); TOTAL CELLS COUNTED % (AUTO) 100 %; WHITE BLOOD COUNT 5.8 10^3/uL (4.0-10.5)
[2019-10-02 13:25] LABS: ALBUMIN 4.1 g/dL (3.5-5.0); ALKALINE PHOSPHATASE 57 U/L (38-126); ANION GAP 5 (5-19); ASPARTATE AMINO TRANSFERASE 23 U/L (17-59); BILIRUBIN,TOTAL 0.4 mg/dL (0.2-1.3); BLOOD UREA NITROGEN 8 mg/dL (7-20); CALCIUM 9.2 mg/dL (8.4-10.2); CARBON DIOXIDE 29 mmol/L (22-30); CHLORIDE 104 mmol/L (98-107); CREATINE KINASE 107 U/L (55-170); GLUCOSE 93 mg/dL (75-110); POTASSIUM 4.2 mmol/L (3.6-5.0); TOTAL PROTEIN 7.6 g/dL (6.3-8.2)
--- NOTE | 2019-10-02 13:39 | EKG REPORT ---
SEVERITY:- ABNORMAL ECG - SINUS RHYTHM FIRST DEGREE AV BLOCK : Confirmed by: Duke Stone MD 02-Oct-2019 13:38:57
[2019-10-02 15:20] LABS: APPEARANCE,URINE CLEAR; BILIRUBIN,URINE NEGATIVE (NEGATIVE); COLOR,URINE STRAW; GLUCOSE, URINE NEGATIVE (NEGATIVE); KETONES,URINE NEGATIVE (NEGATIVE); LEUKOCYTE ESTERASE,URINE NEGATIVE (NEGATIVE); NITRITE,URINE NEGATIVE (NEGATIVE); PROTEIN,URINE NEGATIVE (NEGATIVE); URINE SPECIFIC GRAVITY 1.008; UROBILINOGEN,URINE NEGATIVE mg/dL (<2.0)
--- NOTE | 2019-10-02 15:28 | ER Document Report ---
ED General - General Chief Complaint: Abdominal Pain Stated Complaint: SHAKY,ZULEYKATTERY Time Seen by Provider: 10/02/19 12:20 Primary Care Provider: JAIME KRUGER MD [ACTIVE STAFF] - Follow up as needed ABBE HUANG [NO LOCAL MD] - Follow up as needed YOGESH RODRIGUEZ MD [ACTIVE STAFF] - Follow up as needed Mode of Arrival: Ambulatory Information source: Patient TRAVEL OUTSIDE OF THE [place] IN LAST 30 DAYS: No - HPI Onset: Other - since this morning Onset/Duration: Gradual - this morning Quality of pain: No pain Severity: Moderate Pain Level: 3 Associated symptoms: Weakness, Other - Tremors, Abdomina Pain Exacerbated by: Denies Relieved by: Denies Similar symptoms previously: No Recently seen / treated by doctor: No Notes: The patient came to the ER for evaluation of abdominal pains, tremors and weakness which started this morning on his way to work. While at work the patie nt felt much worse and he told his boss so he was told to come to the ER for evaluation. The patient says his symptoms have improved on their own since coming to the ER. The patient now has no abdominal pain or tremors at all but he still feels a little weak over all. The patient denies recent fevers, chills, sweats, nausea, vomiting, urinary symptoms, diarrhea, constipation, sick contacts, recent travel, recent exposure to chemicals. The patient has never felt like this before. Of note, the patient is under a fair amount of stress as of late. - Related Data Allergies/Adverse Reactions: ibuprofen [Ibuprofen] Allergy (Severe, Verified 10/02/19 12:29) Hives strawberry [[place]] Allergy (Severe, Verified 10/02/19 12:29) morphine Allergy (Verified 10/02/19 12:29) Past Medical History - General Information source: Patient - Social History Smoking Status: Current Every Day Smoker Chew tobacco use (# tins/day): No Frequency of alcohol use: None Drug Abuse: None Family History: Arthritis, CAD, CVA, DM, Hyperlipidemia, Hypertension Patient has homicidal ideation: No - Past Medical History Cardiac Medical History: Denies: Hx Heart Attack, Hx Hypertension Pulmonary Medical History: Reports: Hx Asthma Neurological Medical History: Reports: Hx Migraine, Hx Seizures - ONE TIME A CHILD. Denies: Hx Cerebrovascular Accident Renal/ Medical History: Denies: Hx Peritoneal Dialysis GI Medical History: Denies: Hx Hepatitis, Hx Hiatal Hernia, Hx Ulcer Skin Medical History: Reports Hx Eczema Infectious Medical History: Denies: Hx Hepatitis Past Surgical History: Denies: Hx Open Heart Surgery, Hx Pacemaker - Immunizations Hx Diphtheria, Pertussis, Tetanus Vaccination: Yes Review of Systems - Review of Systems Constitutional: No symptoms reported EENT: No symptoms reported Cardiovascular: No symptoms reported Respiratory: No symptoms reported Gastrointestinal: Abdominal pain Genitourinary: No symptoms reported Male Genitourinary: No symptoms reported Musculoskeletal: Other - feels shaky Skin: No symptoms reported Hematologic/Lymphatic: No symptoms reported Neurological/Psychological: Anxiety -: Yes All other systems reviewed and negative Physical Exam - Vital signs Vitals: Temp Pulse Resp BP Pulse Ox 99.4 F 81 18 136/89 H 98 10/02/19 11:49 10/02/19 11:49 10/02/19 11:49 10/02/19 11:49 10/02/19 11:49 - Notes Notes: GENERAL: Somewhat anxious appears. Well-appearing, well-nourished and in no acute distress. HEAD: Atraumatic, normocephalic. EYES: Pupils equal round and reactive to light, conjunctiva injected and patient is somewhat extraocular movements intact, sclera anicteric, conjunctiva are normal. ENT: External ears normal, nares patent, oropharynx clear without exudates. Moist mucous membranes. NECK: Normal range of motion, supple without lymphadenopathy or JVD. LUNGS: Breath sounds clear to auscultation bilaterally and equal. No wheezes rales or rhonchi. HEART: Regular rate and rhythm without murmurs, rubs or gallops. ABDOMEN: Soft, nontender, normoactive bowel sounds. No guarding, no rebound. No masses appreciated. EXTREMITIES: Normal range of motion, no pitting or edema. No clubbing or cyanosis. NEUROLOGICAL: Cranial nerves II through XII grossly intact. Normal speech, normal gait. PSYCH: Normal mood, normal affect. SKIN: Warm, Dry, normal turgor, no rashes or lesions noted. Course - Re-evaluation Re-evalutation: 10/02/19 16:24 The patient is here in the ER abdominal pains, tremors, and feeling somewhat weak since this morning. He looks well in the ER but somewhat anxious. The patient has no reproducible abdominal tenderness on exam today. Patient's labs including CBC, CMP, Trop, TSH, UA, Urine Drug Screen all unremarkable. Patient told he may have a viral syndrome causing his symptoms but he should follow up with a PCP if symptoms persist for further work up. - Vital Signs Vital signs: Temp Pulse Resp BP Pulse Ox 99.4 F 81 18 136/89 H 98 10/02/19 12:29 10/02/19 11:49 10/02/19 11:49 10/02/19 11:49 10/02/19 11:49 - Laboratory Result Diagrams: 10/02/19 12:45 10/02/19 12:45 Laboratory results interpreted by me: 10/02/19 12:45 RBC 4.12 L MCH 33.7 H Eos % (Auto) 16.2 H Absolute Eos (auto) 0.9 H Seg Neutrophils % 32.8 L - EKG Interpretation by Me EKG shows normal: Sinus rhythm, [place], Intervals, QRS Complexes, ST-T Waves Rate: Normal Rhythm: NSR Discharge - Discharge Clinical Impression: Tremor Abdominal pain Qualifiers: Abdominal location: generalized Qualified Code(s): R10.84 - Generalized abdominal pain Condition: Stable Disposition: HOME, SELF-CARE Instructions: Abdominal Pain ([facility]) Additional Instructions: Follow up with a primary care doctor (several are listed in your discharge paperwork). Tell the doctor you follow up with you were in the ER and had blood work including a CBC, CMP, Troponin, TSH, and that you had a UA all of which were within normal limits. Use Tylenol and Motrin for abdominal pains. Seek medical attention for persistent numbness, tingling, weakness, tremors or if worse. Referrals: LOCALMD,NO [NO LOCAL MD] - Follow up as needed JAIME KRUGER MD [ACTIVE STAFF] - Follow up as needed YOGESH RODRIGUEZ MD [ACTIVE STAFF] - Follow up as needed
[2019-10-02 15:35] LABS: URINE AMPHETAMINES SCREEN NEGATIVE; URINE BARBITURATES SCREEN NEGATIVE; URINE BENZODIAZEPINES SCREEN NEGATIVE; URINE COCAINE SCREEN NEGATIVE; URINE MARIJUANA (THC) SCREEN NEGATIVE; URINE METHADONE SCREEN NEGATIVE; URINE PHENCYCLIDINE SCREEN NEGATIVE
[2019-10-02 16:35] VITALS: BP 159/96
== END 2019-10-02 16:35 | disposition home or self-care (01) ==
LOC: ER 11:43
DX: R10.84 Generalized abdominal pain (principal); R25.1 Tremor, unspecified; R53.1 Weakness; F17.200 Nicotine dependence, unspecified, uncomplicated; Z88.6 Allergy status to analgesic agent
CPT/HCPCS: 36415; 80053; 80307; 81001; 82550; 83735; 84443; 84484; 85025; 93005; 93010; 99284

== ENCOUNTER 2020-03-16 13:08 | Emergency (ER) | payer BC, OTHER ==
[2020-03-16 13:13] VITALS: BP 171/93
--- NOTE | 2020-03-16 13:53 | ER Document Report ---
ED Medical Screen (RME) - General Chief Complaint: Eye Problem Stated Complaint: EYE SWOLLEN Time Seen by Provider: 03/16/20 13:48 Mode of Arrival: Ambulatory Information source: Patient Notes: 44-year-old male presented to ED for complaint of pain and swelling to the right eye. He states he was on his lunch break but now suddenly his eyes started irritating. He states he rubbed his eye and it is been swollen and draining and painful since then. I will get visual acuity and he will need to be seen by a provider to get a full exam of his eye. Patient is alert oriented respirations regular nonlabored speaking in full sentences. States he does not wear contacts or glasses. I have greeted and performed a rapid initial assessment of this patient. A comprehensive ED assessment and evaluation of the patient, analysis of test results and completion of medical decision making process will be conducted by an additional ED providers. TRAVEL OUTSIDE OF THE [place] IN LAST 30 DAYS: No - Related Data Allergies/Adverse Reactions: ibuprofen [Ibuprofen] Allergy (Severe, Verified 10/02/19 12:29) Hives strawberry [[place]] Allergy (Severe, Verified 10/02/19 12:29) morphine Allergy (Verified 10/02/19 12:29) Past Medical History - General Information source: Patient - Social History Cigarette use (# per day): Yes - 1 black in milds a day Frequency of alcohol use: Rare Drug Abuse: None Occupation: [employer] Lives with: Alone Family history: Reviewed & Not Pertinent - Past Medical History Cardiac Medical History: Reports: None Pulmonary Medical History: Reports: Hx Asthma EENT Medical History: Reports: None Neurological Medical History: Reports: Hx Migraine, Hx Seizures - ONE TIME A CHILD Endocrine Medical History: Reports: None Renal/ Medical History: Reports: None. Denies: Hx Peritoneal Dialysis Malignancy Medical History: Reports None GI Medical History: Reports: None Musculoskeltal Medical History: Reports None Skin Medical History: Reports Hx Eczema Psychiatric Medical History: Reports: None Traumatic Medical History: Reports: None Infectious Medical History: Reports: None Past Surgical History: Reports: Other - Cataracts removed bilateral in 2019 - Immunizations Immunizations up to date: No Hx Diphtheria, Pertussis, Tetanus Vaccination: No Physical Exam - Vital signs Vitals: Temp Pulse Resp BP Pulse Ox 98.3 F 85 16 171/93 H 100 03/16/20 13:11 03/16/20 13:11 03/16/20 13:11 03/16/20 13:11 03/16/20 13:11 Course - Vital Signs Vital signs: Temp Pulse Resp BP Pulse Ox 98.3 F 85 16 171/93 H 100 03/16/20 13:11 03/16/20 13:11 03/16/20 13:11 03/16/20 13:11 03/16/20 13:11
== END 2020-03-16 18:00 | disposition left against medical advice (07) ==
LOC: ER 13:08
DX: H57.11 Ocular pain, right eye (principal); Z88.6 Allergy status to analgesic agent
CPT/HCPCS: 99281